=== PATIENT | female | born 1990 | race Caucasian/White ===

== ENCOUNTER 2018-04-08 15:50 | Inpatient (IN) ==
[2018-04-08] MEDS ORDERED: Morphine Inj 4 MG/ML Vial IV.PUSH ONE ×2 (16:24→19:01)
[2018-04-08] MEDS ORDERED: Sod Chloride 0.9% Inj 1,000 ML IV.SIG ONE ×2 (16:24→19:54)
--- NOTE | 2018-04-08 16:39 | ED ---
HPI General Chief Complaint: Abdominal Pain Stated Complaint: poss syncope Time Seen by Provider: 04/08/18 15:58 Source: patient Mode of arrival: ambulatory Limitations: no limitations History of Present Illness HPI narrative: Patient is a 27-year-old female who presents the emergency room for evaluation of possible ruptured ovarian cyst. Patient reports history of ovarian cyst in the past, patient reports that this morning, she had intercourse with her fianc and right after this, she began to have pain to her right lower abdomen. Reports that the pain feels similar to when she was diagnosed with an ovarian cyst in the past. Patient reports that the pain does radiate from her right lower quadrant up to her right ribs. Patient reports that this pain was so severe today, she was bent over her bed and "passed out" for a few seconds from the pain. Patient denies any trauma to the head or neck as she fell onto her bed. Patient reports concerns for a possible ruptured ovarian cyst. Patient adamantly denies any vaginal discharge or bleeding. Patient denies any fever or chills. Patient reports that she is currently in [place] visiting her mike's father - she is from [place] Related Data Home Medications Medication Instructions Recorded Confirmed No Known Home Medications 04/08/18 04/08/18 Allergies Allergy/AdvReac Type Severity Reaction Status Date / Time Sulfa (Sulfonamide Allergy Fever Verified 04/08/18 16:03 Antibiotics) Review of Systems ROS: all other systems reviewed are negative [facility] Medical History Medical History Ovarian cyst (Acute) Surgical History Surgical History H/O tympanostomy (Acute) Social History Social History Substance History: Active Abuse Smoking Status: Current every day smoker Tobacco Type: Cigarettes How Often Do You Have a Drink Containing Alcohol: 2 to 4 times a month Recent Travel in [facility] within the Last 8 Weeks: No Recent Out of Country Travel within the Last 8 Weeks: No Immunization History Tetanus Immunization: Unsure Exam Narrative Exam Narrative: GENERAL: NAD SKIN: Focused skin assessment warm/dry. HEAD: Atraumatic. Normocephalic. EYES: Pupils equal and round. No scleral icterus. No injection or drainage. ENT: No nasal bleeding or discharge. Mucous membranes pink and moist. NECK: Trachea midline. No JVD. CARDIOVASCULAR: Regular rate and rhythm. No murmur appreciated. RESPIRATORY: No accessory muscle use. Clear to auscultation. Breath sounds equal bilaterally. GASTROINTESTINAL: Abdomen soft, tender to right lower abdomen with no rebound or guarding, nondistended. Hepatic and splenic margins not palpable. MUSCULOSKELETAL: No obvious deformities. No clubbing. No cyanosis. No edema. NEUROLOGICAL: Awake and alert. No obvious cranial nerve deficits. Motor grossly within normal limits. Normal speech. PSYCHIATRIC: Appropriate mood and affect; insight and judgment normal. Course Initial Documented Vital Signs Temperature 98.6 F 04/08/18 15:52 Pulse Rate 72 04/08/18 15:52 Respiratory Rate 18 04/08/18 15:52 Blood Pressure 106/59 L 04/08/18 15:52 Pulse Oximetry 100 04/08/18 15:52 Last Documented Vital Signs Temperature 98.6 F 04/08/18 15:52 Pulse Rate 82 04/08/18 20:36 Respiratory Rate 16 04/08/18 19:55 Blood Pressure 109/55 L 04/08/18 20:36 Pulse Oximetry 100 04/08/18 19:57 Critical Care Time Critical Care Time: Yes Total Critical Care Time: 75 Attestation: Aggregate critical care time was 75 minutes. Time to perform other separately billable procedures was not included in the critical care time. My time did not include minutes spent treating any other patients simultaneously or on activities that did not directly contribute to the patient's treatment. The services I provided to this patient were to treat and/or prevent clinically significant deterioration that could result in: hemorrhage shock, cardiopulmonary arrest I provided critical care services requiring my management, as noted below: Chart data review, documentation time, medication orders and management, vital sign assessments/reviewing monitor data, ordering and reviewing lab tests, ordering and interpreting/reviewing x-rays and diagnostic studies, care of the patient and discussion of the patient with the admitting physicians. Medical Decision Making MDM Narrative Medical decision making narrative: During the course of the patients emergency department visit, the patients history, examination, and differential diagnosis were reviewed with the patient. The patient was placed on a vehicle monitor technician with oximetry and frequent blood pressure monitoring. The patient had an IV access obtained and blood work sent for analysis. The patient was initially provided IVF as well as IV zofran Patient was signed out to care of oncoming physician at change of shift Please refer to Dr. Lui's note. The patient was signed out to me with a report that following intercourse this morning she developed sudden onset severe pain in the right abdomen. She then lost consciousness after vomiting. Patient arrives to the ER with CT scan pending. CT scan shows intraperitoneal blood in the pelvis and in about the liver and spleen. White count is 22,000. Hemoglobin is 11.6. Case discussed with of obstetrics. The patient while in the ED stood up to urinate and upon leaving the room lost consciousness. Patient was brought here stretcher and the heart rate was about 110 with a blood pressure of approximately 110/55. Blood glucose was normal. EKG showed a sinus rhythm at a rate of 74 without preexcitation morphology. Liter of saline was added. Blood was drawn at the same time. A repeat CBC showed a hemoglobin of 9.8. Fortunately was here and evaluated the patient again. The case was discussed with Dr. Son about operative intervention. Patient was reassessed about 6 times in the following hour. At 8 :50 PM patient sat up in bed and felt dizzy however there was no vital sign change. Consult to Dr Mckeon for food crops farm hand service, which requests 1U PRBCs after repeat CBC at 930 with [facility] admission (ISC full). d/w Dr Cedeno for general surgery. Dr Son will take patient to OR. Pt hemodynamically normal at 955pm. Pt reports mild persistent abdominal pain. Medical Screen Exam Complete: Yes Emergency Medical Condition: Yes Differential Diagnosis Differential Diagnosis: Ovarian cyst, ovarian torsion, appendicitis, gastritis, gastroenteritis, uti Medical Records Medical records reviewed: Yes I reviewed the patient's medical records. Lab Data Result diagrams: 04/08/18 20:00 04/08/18 16:40 POC Results POC Urine Results Negative Lab Results 04/08/18 04/08/18 04/08/18 Range/Units 16:11 16:40 16:40 WBC 22.4 H (4.0-11.0) th/mm3 RBC 3.67 L (4.00-5.30) mil/mm3 Hgb 11.6 (11.6-15.3) gm/dL Hct 34.9 L (35.0-46.0) % MCV 95.1 (80.0-100.0) fL MCH 31.6 (27.0-34.0) pg MCHC 33.3 (32.0-36.0) % RDW 13.0 (11.6-17.2) % Plt Count 246 (150-450) th/mm3 MPV 10.9 (7.0-11.0) fL Neut % (Auto) 87.4 H (16.0-70.0) % Lymph % (Auto) 8.0 L (9.0-44.0) % [place] % (Auto) 4.4 (0.0-8.0) % Eos % (Auto) 0.0 (0.0-4.0) % Baso % (Auto) 0.2 (0.0-2.0) % Neut # (Auto) 19.5 H (1.8-7.7) th/mm3 Lymph # (Auto) 1.8 (1.0-4.8) th/mm3 [place] # (Auto) 1.0 H (0.0-0.9) th/mm3 Eos # (Auto) 0.0 (0.0-0.4) th/mm3 Baso # (Auto) 0.0 (0.0-0.2) th/mm3 WBC Differential . Differential Comment Auto diff final PT (9.8-11.6) sec INR Ratio APTT (24.3-30.1) sec Sodium 135 L (136-145) meq/L Potassium 3.9 (3.5-5.1) meq/L Chloride 104 (98-107) meq/L Carbon Dioxide 23.5 (21.0-32.0) meq/L Anion Gap 8 (5-15) meq/L BUN 10 (7-18) mg/dL Creatinine 0.82 (0.50-1.00) mg/dL Estimated GFR 83 L (>89) mL/min POC Glucose (68-110) mg/dl Random Glucose 122 H (74-106) mg/dL Calcium 8.3 L (8.5-10.1) mg/dL Total Bilirubin 0.6 (0.2-1.0) mg/dL AST 14 L (15-37) U/L ALT 17 (10-53) U/L Alkaline Phosphatase 68 (45-117) U/L Total Protein 6.8 (6.4-8.2) g/dL Albumin 3.7 (3.4-5.0) g/dL Urine Color Lu (Yellw/Straw) Urine Clarity Cloudy H (Clear) Urine pH 5.0 (5.0-8.5) Ur Specific [place] 1.028 (1.002-1.035) Urine Protein 100 H (Neg-Trace) mg/dL Urine Glucose (UA) Negative (Negative) mg/dL Urine Ketones Trace H (Negative) mg/dL Urine Occult Blood Negative (Negative) Urine Nitrate Negative (Negative) Urine Bilirubin Small H (Negative) Urine Ictotest Positive H (Negative) Urine Urobilinogen 2.0 H (Less than 2) mg/dL Ur Leukocyte Esterase Moderate H (Negative) Urine RBC 16 H (0-3) /hpf Urine WBC 67 H (0-5) /hpf Urine WBC Clumps Few H (None) Ur Squamous Epith Cells 3 (0-5) /hpf Amorphous Sediment Rare H (None) /hpf Urine Bacteria Rare H (None) /hpf Hyaline Casts 5 (0-3) /lpf Urine Mucus Many H (Occasional) /lpf Micro UA Comment Culture indicated Ur Microscopic Review Not Reportable Urine Culture Comments Culture indicated Blood Type Blood Type Recheck Antibody Screen MTS Gel Crossmatch 04/08/18 04/08/18 04/08/18 Range/Units 20:00 20:00 20:00 WBC 19.4 H (4.0-11.0) th/mm3 RBC 3.08 L (4.00-5.30) mil/mm3 Hgb 9.8 L (11.6-15.3) gm/dL Hct 29.0 L (35.0-46.0) % MCV 94.2 (80.0-100.0) fL MCH 31.8 (27.0-34.0) pg MCHC 33.7 (32.0-36.0) % RDW 13.1 (11.6-17.2) % Plt Count 228 (150-450) th/mm3 MPV 10.4 (7.0-11.0) fL Neut % (Auto) 87.5 H (16.0-70.0) % Lymph % (Auto) 10.1 (9.0-44.0) % [place] % (Auto) 2.2 (0.0-8.0) % Eos % (Auto) 0.0 (0.0-4.0) % Baso % (Auto) 0.2 (0.0-2.0) % Neut # (Auto) 16.9 H (1.8-7.7) th/mm3 Lymph # (Auto) 2.0 (1.0-4.8) th/mm3 [place] # (Auto) 0.4 (0.0-0.9) th/mm3 Eos # (Auto) 0.0 (0.0-0.4) th/mm3 Baso # (Auto) 0.0 (0.0-0.2) th/mm3 WBC Differential . Differential Comment Auto diff final PT 11.0 (9.8-11.6) sec INR 1.1 Ratio APTT 22.8 L (24.3-30.1) sec Sodium (136-145) meq/L Potassium (3.5-5.1) meq/L Chloride (98-107) meq/L Carbon Dioxide (21.0-32.0) meq/L Anion Gap (5-15) meq/L BUN (7-18) mg/dL Creatinine (0.50-1.00) mg/dL Estimated GFR (>89) mL/min POC Glucose (68-110) mg/dl Random Glucose (74-106) mg/dL Calcium (8.5-10.1) mg/dL Total Bilirubin (0.2-1.0) mg/dL AST (15-37) U/L ALT (10-53) U/L Alkaline Phosphatase (45-117) U/L Total Protein (6.4-8.2) g/dL Albumin (3.4-5.0) g/dL Urine Color (Yellw/Straw) Urine Clarity (Clear) Urine pH (5.0-8.5) Ur Specific [place] (1.002-1.035) Urine Protein (Neg-Trace) mg/dL Urine Glucose (UA) (Negative) mg/dL Urine Ketones (Negative) mg/dL Urine Occult Blood (Negative) Urine Nitrate (Negative) Urine Bilirubin (Negative) Urine Ictotest (Negative) Urine Urobilinogen (Less than 2) mg/dL Ur Leukocyte Esterase (Negative) Urine RBC (0-3) /hpf Urine WBC (0-5) /hpf Urine WBC Clumps (None) Ur Squamous Epith Cells (0-5) /hpf Amorphous Sediment (None) /hpf Urine Bacteria (None) /hpf Hyaline Casts (0-3) /lpf Urine Mucus (Occasional) /lpf Micro UA Comment Ur Microscopic Review Urine Culture Comments Blood Type O Positive Blood Type Recheck Required Antibody Screen Negative MTS Gel Crossmatch 04/08/18 04/08/18 Range/Units 20:38 21:36 WBC (4.0-11.0) th/mm3 RBC (4.00-5.30) mil/mm3 Hgb (11.6-15.3) gm/dL Hct (35.0-46.0) % MCV (80.0-100.0) fL MCH (27.0-34.0) pg MCHC (32.0-36.0) % RDW (11.6-17.2) % Plt Count (150-450) th/mm3 MPV (7.0-11.0) fL Neut % (Auto) (16.0-70.0) % Lymph % (Auto) (9.0-44.0) % [place] % (Auto) (0.0-8.0) % Eos % (Auto) (0.0-4.0) % Baso % (Auto) (0.0-2.0) % Neut # (Auto) (1.8-7.7) th/mm3 Lymph # (Auto) (1.0-4.8) th/mm3 [place] # (Auto) (0.0-0.9) th/mm3 Eos # (Auto) (0.0-0.4) th/mm3 Baso # (Auto) (0.0-0.2) th/mm3 WBC Differential Differential Comment PT (9.8-11.6) sec INR Ratio APTT (24.3-30.1) sec Sodium (136-145) meq/L Potassium (3.5-5.1) meq/L Chloride (98-107) meq/L Carbon Dioxide (21.0-32.0) meq/L Anion Gap (5-15) meq/L BUN (7-18) mg/dL Creatinine (0.50-1.00) mg/dL Estimated GFR (>89) mL/min POC Glucose 113 H (68-110) mg/dl Random Glucose (74-106) mg/dL Calcium (8.5-10.1) mg/dL Total Bilirubin (0.2-1.0) mg/dL AST (15-37) U/L ALT (10-53) U/L Alkaline Phosphatase (45-117) U/L Total Protein (6.4-8.2) g/dL Albumin (3.4-5.0) g/dL Urine Color (Yellw/Straw) Urine Clarity (Clear) Urine pH (5.0-8.5) Ur Specific [place] (1.002-1.035) Urine Protein (Neg-Trace) mg/dL Urine Glucose (UA) (Negative) mg/dL Urine Ketones (Negative) mg/dL Urine Occult Blood (Negative) Urine Nitrate (Negative) Urine Bilirubin (Negative) Urine Ictotest (Negative) Urine Urobilinogen (Less than 2) mg/dL Ur Leukocyte Esterase (Negative) Urine RBC (0-3) /hpf Urine WBC (0-5) /hpf Urine WBC Clumps (None) Ur Squamous Epith Cells (0-5) /hpf Amorphous Sediment (None) /hpf Urine Bacteria (None) /hpf Hyaline Casts (0-3) /lpf Urine Mucus (Occasional) /lpf Micro UA Comment Ur Microscopic Review Urine Culture Comments Blood Type Blood Type Recheck Antibody Screen MTS Gel Crossmatch See Detail Imaging Data Radiologist's impression: Pelvis Ultrasound 04/08/18 16:24 CONCLUSION: 1. 2.4 cm right ovarian mass likely a hemorrhagic cyst. 2. Moderate amount of free fluid in the right adnexal region. Abdomen/Pelvis CT 04/08/18 17:07 CONCLUSION: 1. There is significant fluid and soft tissue density surrounding the right ovary and uterus with fluid extending into the cul-de-sac. Differential includes a hemorrhagic ovarian cyst versus a tubo-ovarian abscess. There is also fluid in both paracolic gutters, right and left and liver and the spleen. The patient is reportedly beta negative. 2. I do not see a normal or abnormal appendix. Chest X-Ray 04/08/18 19:57 CONCLUSION: Negative examination. Discharge Plan Discharge Disposition Patient Disposition: 30 Still Patient Physicians Team ED Provider: Jeffrey Hill Primary Care Provider: UNKNOWN, Attending Provider: ,Farzaneh M Other Providers: Dustin Mckeon Status ED Status: Admitted Observation Patient
[2018-04-08 17:01] LABS: Baso % (Auto) 0.2 % (0.0-2.0); Hematocrit 34.9 % (35.0-46.0); Hemoglobin 11.6 gm/dL (11.6-15.3); Lymph # (Auto) 1.8 th/mm3 (1.0-4.8); Mean Corpuscular HGB Conc 33.3 % (32.0-36.0); Mean Corpuscular Hemoglobin 31.6 pg (27.0-34.0); Mean Corpuscular Volume 95.1 fL (80.0-100.0); Mean Platelet Volume 10.9 fL (7.0-11.0); Mono % (Auto) 4.4 % (0.0-8.0); Neut # (Auto) 19.5 th/mm3 (1.8-7.7); Neut % (Auto) 87.4 % (16.0-70.0); Platelet Count 246 th/mm3 (150-450); Red Blood Count 3.67 mil/mm3 (4.00-5.30); White Blood Count 22.4 th/mm3 (4.0-11.0)
[2018-04-08 17:19] LABS: Alanine Aminotransferase 17 U/L (10-53); Albumin 3.7 g/dL (3.4-5.0); Anion Gap 8 meq/L (5-15); Aspartate Aminotransferase 14 U/L (15-37); Blood Urea Nitrogen 10 mg/dL (7-18); Calcium 8.3 mg/dL (8.5-10.1); Carbon Dioxide 23.5 meq/L (21.0-32.0); Chloride 104 meq/L (98-107); Glomerular Filtration Rate 83 mL/min (>89); Glucose,Random 122 mg/dL (74-106); Potassium 3.9 meq/L (3.5-5.1); Sodium 135 meq/L (136-145)
[2018-04-08 17:21] LABS: Alkaline Phosphatase 68 U/L (45-117); Total Protein 6.8 g/dL (6.4-8.2)
[2018-04-08 17:36] LABS: Amorphous Sediment,Urine Rare /hpf; Bacteria,Urine Rare /hpf; Bilirubin,Urine Small (Negative); Clarity,Urine Cloudy (Clear); Color,Urine Amber (Yellw/Straw); Glucose,Urine (UA) Negative (Negative); Hyaline Casts,Urine 5 /lpf (0-3); Leukocyte Esterase,Urine Moderate (Negative); Mucus,Urine Many /lpf (Occasional); Nitrite,Urine Negative (Negative); Specific Gravity,Urine 1.028 (1.002-1.035); Squamous Epithelial Cell,Urine 3 /hpf (0-5)
[2018-04-08 17:41] LABS: Ictotest,Urine Positive (Negative)
--- NOTE | 2018-04-08 18:12 | CT ---
EXAM DATE: 04/08/2018 5:53 PM EDT AGE/SEX: 27 years / Female INDICATIONS: Pelvic pain. Possible ruptured ovarian cyst. CLINICAL DATA: This is the patient's initial encounter. Patient reports that signs and symptoms have been present for 1 day and indicates a pain score of 6/10. MEDICAL/SURGICAL HISTORY: None. None. ORAL CONTRAST: No oral contrast ingested. RADIATION DOSE: 6.64 CTDI (mGy) COMPARISON: No prior exams available for comparison. TECHNIQUE: Multiple contiguous axial images were obtained through the abdomen and pelvis following b olus infusion of 80 ml Omnipaque 350 (iohexol) nonionic water-soluble contrast as a single exam dos e. No oral contrast ingested. Using automated exposure control and adjustment of the mA and/or kV ac cording to patient size, radiation dose was kept as low as reasonably achievable to obtain optimal di agnostic quality images. DICOM format image data is available electronically for review and comparis on. FINDINGS: Lower Lungs: The visualized lower lungs are clear. Liver: The liver has a homogeneous density without space-occupying lesion. There is no dilation of th e biliary tree. There is fluid around the liver Spleen: Homogeneous density without enlargement. There is fluid around the spleen in the left paraco lic gutter Pancreas: Unremarkable without mass or calcification. Kidneys: Normal in size and shape. No evidence of mass or hydronephrosis. Adrenal Glands: Unremarkable. Aorta: The aorta and proximal iliac vessels are grossly unremarkable without aneurysmal dilation. Bowel/Mesentery: The bowel loops are grossly unremarkable. The cecum and sigmoid colon have a normal configuration. Abdominal Wall: Intact. Retroperitoneum: No evidence of adenopathy in the retrocrural, para-aortic, or deep pelvic regions. Bladder: Contours are smooth. Reproductive Organs: There is a significant amount of fluid both high and low density around the taylor sharan extending into the cul-de-sac. Differential includes either hemorrhagic ovarian cyst or ectopic p regnancy. The patient is reportedly negative beta conceivably also would be pelvic inflammatory disea se. I do not see a drainable abscess, just diffuse. On the coronal images it does appear to be signif icant fluid around the right ovary. Inguinal: The inguinal region is unremarkable without evidence of adenopathy. Bony Structures: Unremarkable. CONCLUSION: 1. There is significant fluid and soft tissue density surrounding the right ovary and uterus with fl uid extending into the cul-de-sac. Differential includes a hemorrhagic ovarian cyst versus a tubo-ova champ abscess. There is also fluid in both paracolic gutters, right and left and liver and the spleen. The patient is reportedly beta negative. 2. I do not see a normal or abnormal appendix. Electronically signed by: Felipe Shipman MD 04/08/2018 6:10 PM EDT
[2018-04-08] MEDS ORDERED: Piperacil/Tazo 4.5 GM Premix 4.5 GM/100 ML BAG IV.SIG ONE (18:22)
--- NOTE | 2018-04-08 19:02 | US ---
EXAM DATE: 04/08/2018 6:52 PM EDT AGE/SEX: 27 years / Female INDICATIONS: Cysts. CLINICAL DATA: This is the patient's initial encounter. Patient reports that signs and symptoms have been present for 4 - 6 days and indicates a pain score of 7/10. MEDICAL/SURGICAL HISTORY: . Ovarian cysts. . Tympanostomy. COMPARISON: [facility] – [place], CT ABDOMEN & PELVIS W CONTRAST, 04/08/2018. . MEASUREMENTS: Uterus:__9.4 x 3.5 x 5.0 cm Endometrial Stripe:__7 mm Right Ovary:__ 5.3 x 2.4 x 2.9 cm Left Ovary:__ 3.7 x 1.6 x 2.1 cm FINDINGS: Uterus: The myometrium has homogeneous echotexture without mass. Endometrial Stripe: The endometrial stripe displays homogeneous echotexture. Right Ovary: 2.4 x 1.8 x 2.2 cm hypoechoic nonvascular mass likely a hemorrhagic cyst. Left Ovary: Ovary contains no mass or significant cystic lesion. Fluid: Mild to moderate simple free fluid. Other: None. CONCLUSION: 1. 2.4 cm right ovarian mass likely a hemorrhagic cyst. 2. Moderate amount of free fluid in the right adnexal region. Electronically signed by: Jay Heard MD 04/08/2018 7:01 PM EDT
--- NOTE | 2018-04-08 20:11 | P.HPOB ---
History of Present Illness Primary Care Physician: UNKNOWN Chief Complaint: abdominal pain, "fainted" at home History of Present Illness: 27 year-old G0 presented to ED for complaints of "fainting" at home and abdominal pain. The patient reports she has a history of ovarian cysts, including the painful rupture of ovarian cysts. The patient reports she had intercourse at 10am this morning and felt some pain at the end of intercourse. She states the pain felt like when she had a previous ovarian cyst that ruptured. She reports that pain was dull but persistent and has been increasing since she initially felt the pain. She reports that she laid in bed and started to feel better but fainted when she got up to use the bathroom a couple hours later. She denies any exacerbating features. She has no attempted treatments except the morphine. She reports associated diarrhea, nausea, and vomiting at home although these are improved and she has had no emesis here. She reports the pain has improved since receiving morphine in the ER. She reports she felt dizzy at home when she had the syncopal episode and felt dizzy after getting morphine. She denies any new sexual partners, denies any history of STDs. She is to be to her boyfriend next March. [employer]: G0, Menarche at 10, Menses occur monthly and last 4 days. LMP 03/13/18. Denies history of abnormal PAPs or STDs. History of ovarian cysts. PMH: Denies PSH: Denies FH: Hypercholesterolemia SH: Denies except used CDB vapor last night Meds/Allergies: as per EMR Review of Systems All other systems reviewed negative except as stated in [facility] - History History Provided By: Patient - Medical History Medical History: Medical History (Last Reviewed 04/08/18 @ 16:46 by Lauren Lui) Ovarian cyst - Surgical History Surgical History: Surgical History (Last Reviewed 04/08/18 @ 16:46 by Lauren Lui) H/O tympanostomy - Tobacco History Tobacco Use In Past 30 Days: Yes Smoking Status: Current every day smoker Tobacco Type: Cigarettes - Alcohol History How Often Do You Have a Drink Containing Alcohol: 2 to 4 times a month - Substance Use History Substance History: Active Abuse - Travel History Recent Travel in the [place] Within the Last 8 Weeks: No Recent Travel Out of the Country Within the Last 8 Weeks: No - Immunization History Tetanus Immunization: Unsure Medications and Allergies Active Medications: Active Medications Sodium Chloride (Ns Flush) 2 ml IV.FLUSH PRN PRN PRN Reason: FLUSH AFTER USING IV ACCESS Allergies Allergy/AdvReac Type Severity Reaction Status Date / Time Sulfa (Sulfonamide Allergy Fever Verified 04/08/18 16:03 Antibiotics) Home Medications Medication Instructions Recorded Confirmed Type No Known Home Medications 04/08/18 04/08/18 History Exam Vital signs: Vital Signs 04/08/18 15:52 04/08/18 18:37 Temperature 98.6 F Pulse Rate 72 82 Respiratory Rate 18 18 Blood Pressure 106/59 L 113/62 Pulse Oximetry 100 97 Intake & Output 04/08/18 04/08/18 04/09/18 06:59 18:59 06:59 Intake Total 1000 / 1000 100 / 100 Balance 1000 / 1000 100 / 100 Weight 58.967 kg Intake: IV 1000 / 1000 100 / 100 Zosyn 4.5 GM Premix 4.5 gm In 100 / 100 100 ml @ 200 mls/hr IV.SIG ONCE ONE Rx#:[id number] NS Inj 1,000 ML @ Wide Open IV. 1000 / 1000 SIG BOLUS ONE Rx#:[id number] Narrative: GENERAL: Well-nourished, well-developed patient. SKIN: Warm and dry. No rashes, masses, lesions noted. HEAD: Normocephalic and atraumatic. EYES: No scleral icterus. No injection or drainage. ENT: No nasal drainage noted. Mucous membranes pink. Airway patent. NECK: Supple, trachea midline. No JVD. CARDIOVASCULAR: Regular rate and rhythm without murmurs, gallops, or rubs. RESPIRATORY: Breath sounds equal bilaterally. No accessory muscle use. BREASTS: Deferred ABDOMEN/GI: Abdomen soft, visibly appears non-tender when palpated with stethoscope, mildly tender with deep palpation, bowel sounds present, no rebound , no guarding GENITOURINARY: Normal EGBUS, no cervical or vaginal masses noted, grossly normal rugae, physiologic discharge noted. EXTREMITIES: No cyanosis or edema. BACK: Nontender without obvious deformity. No CVA tenderness. NEUROLOGICAL: Awake and alert. Grossly normal memory/affect. Cranial nerves II through XII grossly intact. Motor and sensory grossly within normal limits. Five out of 5 muscle strength in all muscle groups. Normal speech. Results - Labs CBC & Chem 7: 04/08/18 20:00 04/08/18 16:40 Labs: Laboratory Results - last 24 hr 04/08/18 04/08/18 04/08/18 16:11 16:40 16:40 WBC 22.4 H RBC 3.67 L Hgb 11.6 Hct 34.9 L MCV 95.1 MCH 31.6 MCHC 33.3 RDW 13.0 Plt Count 246 MPV 10.9 Neut % (Auto) 87.4 H Lymph % (Auto) 8.0 L [place] % (Auto) 4.4 Eos % (Auto) 0.0 Baso % (Auto) 0.2 Neut # (Auto) 19.5 H Lymph # (Auto) 1.8 [place] # (Auto) 1.0 H Eos # (Auto) 0.0 Baso # (Auto) 0.0 WBC Differential . Differential Comment Auto diff final Sodium 135 L Potassium 3.9 Chloride 104 Carbon Dioxide 23.5 Anion Gap 8 BUN 10 Creatinine 0.82 Estimated GFR 83 L Random Glucose 122 H Calcium 8.3 L Total Bilirubin 0.6 AST 14 L ALT 17 Alkaline Phosphatase 68 Total Protein 6.8 Albumin 3.7 Urine Color Lu Urine Clarity Cloudy H Urine pH 5.0 Ur Specific [place] 1.028 Urine Protein 100 H Urine Glucose (UA) Negative Urine Ketones Trace H Urine Occult Blood Negative Urine Nitrate Negative Urine Bilirubin Small H Urine Ictotest Positive H Urine Urobilinogen 2.0 H Ur Leukocyte Esterase Moderate H Urine RBC 16 H Urine WBC 67 H Urine WBC Clumps Few H Ur Squamous Epith Cells 3 Amorphous Sediment Rare H Urine Bacteria Rare H Hyaline Casts 5 Urine Mucus Many H Micro UA Comment Culture indicated Ur Microscopic Review Not Reportable Urine Culture Comments Culture indicated - Imaging Impressions Pelvis Ultrasound 04/08/18 16:24 CONCLUSION: 1. 2.4 cm right ovarian mass likely a hemorrhagic cyst. 2. Moderate amount of free fluid in the right adnexal region. Abdomen/Pelvis CT 04/08/18 17:07 CONCLUSION: 1. There is significant fluid and soft tissue density surrounding the right ovary and uterus with fluid extending into the cul-de-sac. Differential includes a hemorrhagic ovarian cyst versus a tubo-ovarian abscess. There is also fluid in both paracolic gutters, right and left and liver and the spleen. The patient is reportedly beta negative. 2. I do not see a normal or abnormal appendix. Caprini VTE Risk Assessment Caprini VTE Risk Assessment: No/Low Risk (score <= 1) Caprini Risk Assessment Model: Point Value = 1 Point Value = 2 Point Value = 3 Point Value = 5 Age 41-60 Minor surgery BMI > 25 kg/m2 Swollen legs Varicose veins or History of unexplained or recurrent spontaneous Oral contraceptives or hormone replacement Sepsis (< 1 month) Serious lung disease, including pneumonia (< 1 month) Abnormal pulmonary function Acute myocardial infarction Congestive heart failure (< 1 month) History of inflammatory bowel disease Medical patient at bed rest Age 61-74 Arthroscopic surgery Major open surgery (> 45 min) Laparoscopic surgery (> 45 min) Malignancy Confined to bed (> 72 hours) Immobilizing plaster cast Central venous access Age >= 75 History of VTE Family history of VTE Factor V Leiden Prothrombin [id number] Lupus anticoagulant Anticardiolipin antibodies Elevated serum homocysteine Heparin-induced thrombocytopenia Other congenital or acquired thrombophilia Stroke (< 1 month) Elective arthroplasty Hip, pelvis, or leg fracture Acute spinal cord injury (< 1 month) Prophylaxis Regimen: Total Risk Factor Score Risk Level Prophylaxis Regimen 0-1 Low Early ambulation 2 Moderate Order ONE of the following: *Sequential Compression Device (SCD) *Heparin 5000 units SQ BID 3-4 Higher Order ONE of the following medications: *Heparin 5000 units SQ TID *Enoxaparin/Lovenox 40 mg SQ daily (WT < 150 kg, CrCl > 30 mL/min) *Enoxaparin/Lovenox 30 mg SQ daily (WT < 150 kg, CrCl > 10-29 mL/min) *Enoxaparin/Lovenox 30 mg SQ BID (WT < 150 kg, CrCl > 30 mL/min) AND/OR *Sequential Compression Device (SCD) 5 or more Highest Order ONE of the following medications: *Heparin 5000 units SQ TID (Preferred with Epidurals) *Enoxaparin/Lovenox 40 mg SQ daily (WT < 150 kg, CrCl > 30 mL/min) *Enoxaparin/Lovenox 30 mg SQ daily (WT < 150 kg, CrCl > 10-29 mL/min) *Enoxaparin/Lovenox 30 mg SQ BID (WT < 150 kg, CrCl > 30 mL/min) AND *Sequential Compression Device (SCD) Assessment and Plan - Plan Assessment/Plan: 1. Probable ruptured ovarian cyst: likely with hemoperitoneum, Hgb 11.6 on presentation with drop to 9.8, moderate free fluid on ultrasound. Vital signs have remained stable with only 1 L IVF. Patient had witnessed syncopal episode in the ED and received a second liter of IVF but maintained stable vital signs. Discussed management options with expectant management with following serial Hgb and abdominal exams versus surgical intervention. The patient prefers to avoid surgery if possible. Discussed that typically with a ruptured ovarian cyst , even with hemoperitoneum, the bleeding has typically subsided and often no bleeding is noted at the time of surgery. Discussed that the hemoperitoneum may take several weeks to reabsorb but will be spontaneously reabsorbed by her body. Discussed indications for surgical intervention that would include continued or significant or precipitous drop in Hgb, evidence of hemodynamic instability, or worsening symptoms. Discussed surgical risks that include but are not limited to pain, infection, bleeding, injury to other organs like the bladder/bowels/nerves/vessels, need for a repeat operation, possible removal of any organs as indicated like ovaries or any other indicated procedures as determined at the time of surgical evaluation. Discussed possible transfusion if indicated by symptoms or Hgb drop. All of the patients questions were answered. Will cross for 2 units of blood, ED RN indicated this had been ordered. Discussed the case with Dr. Everett who is in agreement with the plan and is available if surgical intervention becomes indicated. 2. Syncope: syncope x2 at home, witnessed syncope in ED, repeat Hgb 9.8 but maintains normal BP and pulse, evaluation in progress. 3. Leukocytosis with possible UTI: the patient reports she gets frequent UTIs, received Zosyn for one dose in the ER, Rx Rocephin 1g. Culture pending. 4. Recent CDB use. Addendum: spoke with Dr. Hill again, he has requested admission of the patient to ICU and spoke with wound care nurse and trauma surgery, discussed patient again with Dr. Everett who will take the patient for surgical evaluation, evacuation of hemoperitoneum, and any other procedures as indicated.
[2018-04-08 20:12] LABS: Baso % (Auto) 0.2 % (0.0-2.0); Hemoglobin 9.8 gm/dL (11.6-15.3); Lymph % (Auto) 10.1 % (9.0-44.0); Mean Corpuscular HGB Conc 33.7 % (32.0-36.0); Mean Corpuscular Hemoglobin 31.8 pg (27.0-34.0); Mean Corpuscular Volume 94.2 fL (80.0-100.0); Mean Platelet Volume 10.4 fL (7.0-11.0); Mono # (Auto) 0.4 th/mm3 (0.0-0.9); Mono % (Auto) 2.2 % (0.0-8.0); Neut # (Auto) 16.9 th/mm3 (1.8-7.7); Neut % (Auto) 87.5 % (16.0-70.0); Platelet Count 228 th/mm3 (150-450); Red Blood Count 3.08 mil/mm3 (4.00-5.30); Red Cell Distribution Width 13.1 % (11.6-17.2); White Blood Count 19.4 th/mm3 (4.0-11.0)
--- NOTE | 2018-04-08 20:20 | XR ---
EXAM DATE: 04/08/2018 8:14 PM EDT AGE/SEX: 27 years / Female INDICATIONS: Chest discomfort with shortness of breath. Possible ovarian cyst rupture. CLINICAL DATA: This is the patient's initial encounter. Patient reports that signs and symptoms have been present for 1 day and indicates a pain score of 2/10. MEDICAL/SURGICAL HISTORY: None. None. COMPARISON: No prior exams available for comparison. FINDINGS: A single AP view of the chest demonstrates the lungs to be symmetrically aerated without evidence of mass, infiltrate or effusion. The cardiomediastinal contours are unremarkable. Osseous structures a re intact. CONCLUSION: Negative examination. Electronically signed by: Jay Heard MD 04/08/2018 8:19 PM EDT
[2018-04-08 20:30] LABS: Activated Partial Thrombo Time 22.8 sec (24.3-30.1); INR 1.1 Ratio
[2018-04-08] MEDS ORDERED: Acetaminophen 325 MG Tablet PO PRN (21:03)
[2018-04-08] MEDS ORDERED: Sodium Chlor 0.9% Inj 250 ML IV.SIG SCH (22:00)
--- NOTE | 2018-04-08 22:00 | P.CONCC ---
History of Present Illness Service: Critical care Consult date: 04/08/18 Requesting Physician: Jeffrey Hill Reason for Consult: Syncope, hemoperitoneum Primary Care Provider: UNKNOWN Chief Complaint: abdominal pain, "fainted" at home History of Present Illness: Patient is a 27-year-old female who presented to the emergency department after a episode of fainting and abdominal pain. She has history of ovarian cyst rupture. Apparently she had sexual intercourse at 10am today and felt some pain at the end of intercourse. Pain gradually got worse and patient had syncope couple of hours later when she got up to go to the bathroom. In the emergency department patient's white count was 22.4, hemoglobin initially was 11.6. UA showed evidence of UTI. Patient received morphine for pain and had another episode of syncope. Received 1 L fluid bolus, a CT of the abdomen pelvis stat showed significant fluid and soft tissue density surrounding the right ovary and uterus with fluid extending into the cul-de-sac. Differential includes a hemorrhagic ovarian cyst versus a tubo-ovarian abscess. Also fluid in both paracolic gutters, right and left and liver and the spleen. Ultrasound showed hemorrhagic ovarian cyst. Repeat hemoglobin was 9.8 after the episode of syncope. Patient was admitted to the [facility] service for ruptured hemorrhagic ovarian cyst. Due to 2 episodes of syncope and anemia critical care medicine evaluation was requested. I evaluate the patient in the ED. She appears pale and ill. There is no peritoneal symptoms but patient has right upper quadrant tenderness. I reviewed the CT scan there is a significant amount of fluid possibly blood intraperitoneally. Case was discussed with Dr. Hill extensively. Dr. Everett was contacted again and plan is for OR for exploratory laparotomy, and evacuation of hemoperitoneum. Received Zosyn in the ED, will place on Rocephin and Flagyl. Check lactic acid. UA shows evidence of UTI Review of Systems All other systems reviewed negative except as stated in HPI PMFSH - History History Provided By: Patient - Medical History Medical History: Medical History (Last Reviewed 04/08/18 @ 22:29 by Dustin Mckeon MD) Ovarian cyst - Surgical History Surgical History: Surgical History (Last Reviewed 04/08/18 @ 22:29 by Dustin Mckeon MD) H/O tympanostomy - Tobacco History Tobacco Use In Past 30 Days: Yes Smoking Status: Current every day smoker Tobacco Type: Cigarettes - Alcohol History How Often Do You Have a Drink Containing Alcohol: 2 to 4 times a month - Substance Use History Substance History: Active Abuse - Travel History Recent Travel in the [place] Within the Last 8 Weeks: No Recent Travel Out of the Country Within the Last 8 Weeks: No - Immunization History Tetanus Immunization: Unsure Medications and Allergies Active Medications: Active Medications Acetaminophen (Tylenol) 650 mg PO Q4H PRN PRN Reason: PAIN SCALE 1 TO 5 Lactated Ringer's (Lr 1000 Ml Inj) 1,000 mls @ 3,000 mls/hr IV.SIG UNSCH PRN PRN Reason: compromise or epidural Lactated Ringer's (Lr 1000 Ml Inj) 1,000 mls @ 125 mls/hr IV.CONT .Q8H LUISA Ceftriaxone Sodium 1,000 mg/ (Sodium Chloride) 100 mls @ 200 mls/hr IV.SIG Q24H LUISA Sodium Chloride (Ns Inj) 250 mls @ 15 mls/hr IV.SIG ONCE LUISA Stop: 04/09/18 14:39 Ondansetron HCl (Zofran Inj) 4 mg IV.PUSH Q6H PRN PRN Reason: NAUSEA OR VOMITING Sodium Chloride (Ns Flush) 2 ml IV.FLUSH PRN PRN PRN Reason: FLUSH AFTER USING IV ACCESS Allergies Allergy/AdvReac Type Severity Reaction Status Date / Time Sulfa (Sulfonamide Allergy Fever Verified 04/08/18 16:03 Antibiotics) Home Medications Medication Instructions Recorded Confirmed Type No Known Home Medications 04/08/18 04/08/18 History Physical Exam Vital signs: Vital Signs 04/08/18 15:52 04/08/18 18:37 04/08/18 19:55 Temperature 98.6 F Pulse Rate 72 82 84 Respiratory Rate 18 18 16 Blood Pressure 106/59 L 113/62 111/56 L Pulse Oximetry 100 97 04/08/18 19:57 04/08/18 20:36 Temperature Pulse Rate 73 82 Respiratory Rate Blood Pressure 127/61 109/55 L Pulse Oximetry 100 Intake & Output 04/08/18 04/08/18 04/09/18 06:59 18:59 06:59 Intake Total 1000 / 1000 1100 / 1100 Balance 1000 / 1000 1100 / 1100 Weight 58.967 kg Intake: IV 1000 / 1000 1100 / 1100 Zosyn 4.5 GM Premix 4.5 gm In 100 / 100 100 ml @ 200 mls/hr IV.SIG ONCE ONE Rx#:[id number] NS Inj 1,000 ML @ Wide Open IV. 1000 / 1000 1000 / 1000 SIG BOLUS ONE Rx#:[id number] Narrative: GENERAL: Well-nourished, well-developed patient. Lying in ED gurney in mild distress SKIN: Warm and dry. Significantly pale HEAD: Normocephalic and atraumatic. EYES: No scleral icterus. No injection or drainage. Conjunctival pallor ENT: No nasal drainage noted. Mucous membranes pink. Airway patent. NECK: Supple, trachea midline. No JVD. CARDIOVASCULAR: Regular rate and rhythm without murmurs, gallops, or rubs. RESPIRATORY: Breath sounds equal bilaterally. No accessory muscle use. ABDOMEN/GI: Abdomen soft, tenderness to palpation in the right upper quadrant, no rebound, no guarding GENITOURINARY: see OBGYN note EXTREMITIES: No edema. BACK: No CVA tenderness. NEUROLOGICAL: Awake and alert. Follows commands no focal deficits Septic Shock Reassessment Septic shock perfusion: reassessment completed Assessment and Plan - Assessment and Plan Plan: ASSESSMENT: Syncope Hemoperitoneum from most likely ruptured ovarian cyst Sepsis UTI present on admission Anemia Rule out tubo-ovarian abscess PLAN: NEURO: -Morphine and Tylenol as needed for pain control RESP: -Albuterol as needed -Pulmonary toilet CV: -Syncope may be related to blood loss or pain -Normal saline IV fluids 1 L bolus and maintenance fluid at 84 mL/h -Check serial hemoglobin, check lactic acid GI: -N.p.o., IV famotidine : -[facility] following, OR today for ex lap -Type and crossmatch for 2 units PRBC -Monitor renal function closely. Gillis catheter. ID: -Antibiotics-received Zosyn and Rocephin in the ED -Increase Rocephin to 2 g IV every 24 hours, add IV Flagyl -Blood urine cultures. Cannot rule out a tubo-ovarian abscess at this time HEME: -Monitor CBC, coags -Transfuse hemoglobin for less than 7 or symptomatic anemia ENDO: -Electrolyte replacement per protocol if needed PROPH: -Bilateral lower extremity SCDs. IV famotidine LINES: -Utilize peripheral IVs, central line if needed CC time 35 min Code Status: Full Discussed Condition With: Dr. Hill
[2018-04-08 22:07] LABS: Baso % (Auto) 0.2 % (0.0-2.0); Eos % (Auto) 0.1 % (0.0-4.0); Hemoglobin 10.1 gm/dL (11.6-15.3); Lymph # (Auto) 1.3 th/mm3 (1.0-4.8); Lymph % (Auto) 7.4 % (9.0-44.0); Mean Corpuscular HGB Conc 34.9 % (32.0-36.0); Mean Corpuscular Hemoglobin 32.3 pg (27.0-34.0); Mean Corpuscular Volume 92.7 fL (80.0-100.0); Mean Platelet Volume 10.8 fL (7.0-11.0); Mono # (Auto) 0.6 th/mm3 (0.0-0.9); Mono % (Auto) 3.2 % (0.0-8.0); Neut # (Auto) 15.5 th/mm3 (1.8-7.7); Neut % (Auto) 89.1 % (16.0-70.0); Platelet Count 175 th/mm3 (150-450); Red Blood Count 3.13 mil/mm3 (4.00-5.30); Red Cell Distribution Width 12.8 % (11.6-17.2); White Blood Count 17.4 th/mm3 (4.0-11.0)
[2018-04-08] MEDS ORDERED: Morphine Sulfate Inj 2 MG/ML Vial IM PRN (22:10)
[2018-04-08] MEDS ORDERED: Bupivacaine/Epinephrine Inj 0.25% 50 ML Vial ONE (22:26)
[2018-04-08] MEDS ORDERED: fentaNYL Citrate Inj 250 MCG/5 ML Ampul ONE (22:28)
[2018-04-08] MEDS ORDERED: Glycopyrrolate Inj 1 MG/5 ML Syringe IV.PUSH ONE (22:54)
[2018-04-08] MEDS ORDERED: Succinylcholine Inj 100 MG/5 ML Syringe IV.PUSH ONE (22:54)
[2018-04-08] MEDS ORDERED: Neostigmine Inj 5 MG/5 ML Syringe IV.PUSH ONE (22:54)
[2018-04-09] MEDS ORDERED: Morphine Sulfate Inj 2 MG/ML Vial IV.PUSH PRN (00:02)
[2018-04-09] MEDS ORDERED: Morphine Inj 4 MG/ML Vial IV.PUSH PRN (00:54)
[2018-04-09] MEDS ORDERED: Ketorolac Inj 30 MG/ML (IVP) Vial IV.PUSH PRN (00:54)
[2018-04-09 01:41] LABS: Baso % (Auto) 0.2 % (0.0-2.0); Hemoglobin 10.2 gm/dL (11.6-15.3); Lymph # (Auto) 0.9 th/mm3 (1.0-4.8); Lymph % (Auto) 5.9 % (9.0-44.0); Mean Corpuscular HGB Conc 33.1 % (32.0-36.0); Mean Corpuscular Hemoglobin 31.4 pg (27.0-34.0); Mean Platelet Volume 10.6 fL (7.0-11.0); Mono # (Auto) 0.2 th/mm3 (0.0-0.9); Mono % (Auto) 1.1 % (0.0-8.0); Neut # (Auto) 14.5 th/mm3 (1.8-7.7); Neut % (Auto) 92.8 % (16.0-70.0); Platelet Count 197 th/mm3 (150-450); Red Blood Count 3.26 mil/mm3 (4.00-5.30); Red Cell Distribution Width 13.3 % (11.6-17.2); White Blood Count 15.7 th/mm3 (4.0-11.0)
[2018-04-09 05:54] LABS: Hemoglobin 8.8 gm/dL (11.6-15.3); Mean Corpuscular HGB Conc 32.6 % (32.0-36.0); Mean Corpuscular Hemoglobin 31.3 pg (27.0-34.0); Mean Corpuscular Volume 96.2 fL (80.0-100.0); Mean Platelet Volume 10.5 fL (7.0-11.0); Platelet Count 177 th/mm3 (150-450); Red Blood Count 2.81 mil/mm3 (4.00-5.30); Red Cell Distribution Width 13.2 % (11.6-17.2); White Blood Count 13.5 th/mm3 (4.0-11.0)
[2018-04-09 06:24] LABS: Alanine Aminotransferase 13 U/L (10-53); Albumin 2.9 g/dL (3.4-5.0); Alkaline Phosphatase 54 U/L (45-117); Anion Gap 7 meq/L (5-15); Aspartate Aminotransferase 9 U/L (15-37); Blood Urea Nitrogen 5 mg/dL (7-18); Calcium 8.1 mg/dL (8.5-10.1); Carbon Dioxide 22.8 meq/L (21.0-32.0); Chloride 113 meq/L (98-107); Glomerular Filtration Rate Greater Than 89 mL/min (>89); Glucose,Random 127 mg/dL (74-106); Magnesium 1.7 mg/dL (1.5-2.5); Potassium 4.1 meq/L (3.5-5.1); Sodium 143 meq/L (136-145); Total Protein 5.5 g/dL (6.4-8.2)
[2018-04-09] MEDS ORDERED: Famotidine PF Inj 20 MG/2 ML Vial IV.PUSH SCH (09:00)
--- NOTE | 2018-04-09 13:34 | ECG ---
Date Performed: 04/08/2018 Time Performed: 19:58:32 PTAGE: 27 years EKG: Sinus rhythm NORMAL ECG NO PREVIOUS TRACING DOCTOR: Felipe Campoverde Interpretating Date/Time 04/09/2018 13:31:28
--- NOTE | 2018-04-10 14:22 | MP ---
cc: Darcy Everett MD DATE OF OPERATION: 04/08/2018 DATE OF SURGERY: 04/08/2018 PREOPERATIVE DIAGNOSIS: Suspected ruptured hemorrhagic ovarian cyst. POSTOPERATIVE DIAGNOSIS: Hemoperitoneum. PROCEDURE PERFORMED: Diagnostic laparoscopy with evacuation of hemoperitoneum. SURGEON: Dr. Darcy Celeste. ANESTHESIA: General endotracheal. FINDINGS IN SURGERY: Included: 1. About a 500 mL hemoperitoneum. 2. Normal appearing tubes, ovaries and uterus. 3. No active bleeding noted. 4. Normal appearing appendix and bowel and liver and gallbladder. COMPLICATIONS: None. ESTIMATED BLOOD LOSS: Minimal. PROCEDURE IN DETAIL: After proper consents were obtained, blood had been typed and crossed, patient was taken to the operating room where general endotracheal anesthesia was applied. She was then placed in dorsal lithotomy position, sterilely prepped and draped and a Gillis catheter was placed. At this time lidocaine with epinephrine solution was placed in the umbilicus. A 5 mm incision was made in the umbilicus. A 5 mm trocar was placed under direct visualization into the abdominopelvic cavity easily. We insufflated to an adequate level of pneumoperitoneum. Inspection revealed blood noted in the pelvis and a large amount of clotted blood, also up in the right upper quadrant. We went ahead and placed 2 more 5 mm trocar sites in the mid axillary bilateral lower quadrants without difficulty. We then irrigated out all of the blood. We broke up the blood clots and were able to get all of those out. After that was done, we irrigated thoroughly and inspection revealed a very normal-appearing uterus. Each tube was normal. Each ovary appeared normal. No sign of bleeding. So, most likely was a ruptured cyst, which has already become hemostatic. Further inspection revealed the bowel to appear normal; liver normal, gallbladder normal, appendix, normal. So at this time, after thorough irrigation, we removed all of our instruments, desufflated the abdomen. We closed our incisions with a 4-0 Monocryl in a subcutaneous fashion. Counts were correct and the patient was stable to the recovery room. Darcy Everett MD CCD/uday , 02:04 PM , 02:11 PM
== END 2018-04-09 14:09 | disposition home or self-care (01) ==
LOC: NEDA 15:50 → NEPD 15:50 → NEDA 22:43 → HPAC 22:45 → H1EA 04-09 01:59
PROVIDERS: ADMIT Obstetrics & Gynecology; ATTEND Obstetrics & Gynecology